=== PATIENT | male | born 1960 | race Caucasian/White ===

== ENCOUNTER 2019-03-07 17:02 | Emergency (ER) | payer SELFPAY ==
--- NOTE | 2019-03-07 18:06 | EDPHYS ---
Physician Documentation [facility] Name: Armani Cary Age: 58 yrs Sex: Male : 1960 Arrival Date: 03/07/2019 Time: 17:08 Bed 6 Private MD: ED Physician Melchor Mandujano HPI: 03/07 18:02 This 58 yrs old Male presents to ER via EMS with complaints of Fall Injury. ma2 18:02 Details of fall: The patient fell from a height. Associated injuries: The patient ma2 sustained injury to the head. Severity of symptoms: At their worst the symptoms were mild. The patient has not experienced similar symptoms in the past. Historical: - Allergies: 17:10 No Known Allergies; jl7 - Home Meds: 17:10 None [Active]; jl7 - PMHx: 17:10 None; jl7 - PSHx: 17:10 None; jl7 - Immunization history:: Adult Immunizations unknown. - Social history:: Smoking status: Patient uses tobacco products, smokes one pack cigarettes per day. Patient uses alcohol, on a daily basis. 12 pack/day. Patient/guardian denies using alcohol, street drugs, The patient lives with family. - Ebola Screening: : No symptoms or risks identified at this time. - Family history:: not pertinent. ROS: 18:02 Constitutional: Negative for fever, chills, and weight loss, Cardiovascular: Negative ma2 for chest pain, palpitations, and edema, Respiratory: Negative for shortness of breath, cough, wheezing, and pleuritic chest pain, Abdomen/GI: Negative for abdominal pain, nausea, diarrhea, and constipation. 18:02 All other systems are negative. Exam: 18:02 Constitutional: This is a well developed, well nourished patient who is awake, alert, ma2 and in no acute distress. Head/Face: Normocephalic, atraumatic. Eyes: Pupils equal round and reactive to light, extra-ocular motions intact. Lids and lashes normal. Conjunctiva and sclera are non-icteric and not injected. Cornea within normal limits. Periorbital areas with no swelling, redness, or edema. Neck: Trachea midline, no thyromegaly or masses palpated, and no cervical lymphadenopathy. Supple, full range of motion without nuchal rigidity, or vertebral point tenderness. No Meningismus. Chest/axilla: Normal chest wall appearance and motion. Nontender with no deformity. No lesions are appreciated. Cardiovascular: Regular rate and rhythm with a normal S1 and S2. No gallops, murmurs, or rubs. Normal PMI, no JVD. No pulse deficits. Respiratory: Lungs have equal breath sounds bilaterally, clear to auscultation and percussion. No rales, rhonchi or wheezes noted. No increased work of breathing, no retractions or nasal flaring. Vital Signs: 17:10 BP 174 / 115; Pulse 70; Resp 17 S; Temp 98.2(O); Pulse Ox 100% on R/A; Weight 65.77 kg jl7 (R); Pain 0/10; 18:08 BP 170 / 110; Pulse 71; Resp 15 S; Pulse Ox 100% on R/A; Pain 0/10; jl7 MDM: 17:08 Patient medically screened. ma2 18:02 Differential diagnosis: abrasion, closed head injury, contusion, fracture. Data ma2 reviewed: vital signs, nurses notes. Counseling: I had a detailed discussion with the patient and/or guardian regarding: the historical points, exam findings, and any diagnostic results supporting the discharge/admit diagnosis, the presence of at least one elevated blood pressure reading (>120/80) during this emergency department visit, the need for outpatient follow up. 03/07 17:09 Order name: CT Head C Spine ma2 Administered Medications: No medications were administered Disposition: 03/07/19 18:05 Discharged to Home. Impression: Acute post-traumatic headache. - Condition is Stable. - Medication Reconciliation Form, Thank You Letter, Antibiotic Education, Prescription Opioid Use form. - Follow up: Private Physician; When: Tomorrow; Reason: Continuance of care. Signatures: Dispatcher [employer] Catrachito Kate RN RN jl7 Melchor Mandujano MD MD ma2 Corrections: (The following items were deleted from the chart) 18:08 18:05 03/07/2019 18:05 Discharged to Home. Impression: Acute post-traumatic headache. jl7 Condition is Stable. Forms are Medication Reconciliation Form, Thank You Letter, Antibiotic Education, Prescription Opioid Use. Follow up: Private Physician; When: Tomorrow; Reason: Continuance of care. ma2
--- NOTE | 2019-03-07 18:06 | ER ---
Nurse's Notes [facility] Name: Armani Cary Age: 58 yrs Sex: Male : 1960 Arrival Date: 03/07/2019 Time: 17:08 Bed 6 Private MD: Diagnosis: Acute post-traumatic headache Presentation: 03/07 17:08 Presenting complaint: EMS states: Pt fell and bystanders reports he hit his head with jl7 positive LOC, pt denies LOC, pt has been drinking today. Pt also reports he's had a cough for a month and "It might need to be checked out.". Transition of care: patient was not received from another setting of care. Onset of symptoms was March 07, 2019. Risk Assessment: Do you want to hurt yourself or someone else? Patient reports no desire to harm self or others. Initial Sepsis Screen: Does the patient meet any 2 criteria? No. Patient's initial sepsis screen is negative. Does the patient have a suspected source of infection? No. Patient's initial sepsis screen is negative. Care prior to arrival: None. 17:08 Method Of Arrival: EMS: [facility] jl7 17:08 Acuity: RAHEEL 4 jl7 Triage Assessment: 17:10 General: Appears in no apparent distress. comfortable, Behavior is cooperative, Smells jl7 of alcohol. Pain: Denies pain. Neuro: Level of Consciousness is awake, alert, obeys commands, Oriented to person, place, time, situation, Pupils are PERRLA. Cardiovascular: Patient's skin is warm and dry. Respiratory: Reports cough that is productive, Airway is patent Respiratory effort is even, unlabored, Respiratory pattern is regular, symmetrical. Derm: Skin is pink, warm \\T\\ dry. Musculoskeletal: No deficits noted. Historical: - Allergies: 17:10 No Known Allergies; jl7 - Home Meds: 17:10 None [Active]; jl7 - PMHx: 17:10 None; jl7 - PSHx: 17:10 None; jl7 - Immunization history:: Adult Immunizations unknown. - Social history:: Smoking status: Patient uses tobacco products, smokes one pack cigarettes per day. Patient uses alcohol, on a daily basis. 12 pack/day. Patient/guardian denies using alcohol, street drugs, The patient lives with family. - Ebola Screening: : No symptoms or risks identified at this time. - Family history:: not pertinent. Screenin:10 Abuse screen: Denies threats or abuse. Denies injuries from another. Nutritional jl7 screening: No deficits noted. Tuberculosis screening: No symptoms or risk factors identified. Fall Risk None identified. Assessment: 17:10 General: See triage assessment. jl7 Vital Signs: 17:10 BP 174 / 115; Pulse 70; Resp 17 S; Temp 98.2(O); Pulse Ox 100% on R/A; Weight 65.77 kg jl7 (R); Pain 0/10; 18:08 BP 170 / 110; Pulse 71; Resp 15 S; Pulse Ox 100% on R/A; Pain 0/10; jl7 ED Course: 17:08 Patient arrived in ED. jl7 17:08 Melchor Mandujano MD is Attending Physician. sd2 17:10 Triage completed. jl7 17:10 Arm band placed on right wrist. jl7 17:10 Patient has correct armband on for positive identification. Bed in low position. Call [facility] light in reach. Side rails up X 1. Pulse ox on. NIBP on. 17:35 Catrachito Dewey, RN is Primary Nurse. jl7 18:01 CT Head C Spine In Process Unspecified. EDMS 18:08 No provider procedures requiring assistance completed. Patient did not have IV access [facility] during this emergency room visit. Administered Medications: No medications were administered Outcome: 18:05 Discharge ordered by . ma2 18:08 Discharged to home ambulatory. jl7 18:08 Condition: stable 18:08 Discharge instructions given to patient, Instructed on discharge instructions, follow up and referral plans. Demonstrated understanding of instructions, follow-up care. 18:08 Patient left the ED. 7 Signatures: Dispatcher [employer] Catrachito Kate RN RN jl7 Alzahri, Mohammad, MD MD health system
--- NOTE | 2019-03-07 18:20 | RAD REPORT ---
EXAM DESCRIPTION: CT - Head C Spine Mpr Wo Con - 03/07/2019 6:00 pm CLINICAL HISTORY: Head and neck injury status post fall. Head and neck pain COMPARISON: None. TECHNIQUE: Computed axial tomography of the head and cervical spine was obtained. Sagittal and coronal reconstruction was performed. All CT scans are performed using dose optimization technique as appropriate and may include automated exposure control or mA/KV adjustment according to patient size. FINDINGS: An intracranial bleed is not seen. The ventricles are normal in caliber. An extra-axial fl uid collection is not noted.Fluid within the visualized sinuses and mastoids is not seen A cervical fracture is not visualized. No dislocation is noted. Spondylosis involves the cervical spi ne resulting in central and foraminal stenosis. C5-6 there is marked right foraminal stenosis and mod erate to marked central spinal stenosis and compression of the spinal cord IMPRESSION: No acute intracranial abnormality is seen. A cervical fracture is not visualized.
[2019-03-07 20:03] VITALS: TEMP 98.2; O2SAT 100
[2019-03-07 20:05] VITALS: BP 170/110
== END 2019-03-07 18:08 | disposition home or self-care (01) ==
LOC: ER 17:02
DX: G44.319 Acute post-traumatic headache, not intractable (principal); F17.210 Nicotine dependence, cigarettes, uncomplicated; W18.30XA Fall on same level, unspecified, initial encounter; Y93.9 Activity, unspecified; Y92.9 Unspecified place or not applicable
CPT/HCPCS: 70450; 72125; 99283

== ENCOUNTER 2019-11-28 09:40 | Emergency (ER) | payer SELFPAY ==
[2019-11-28] MEDS ORDERED: HYDROCODONE/APAP 5/325 MG TAB ONE (10:16)
[2019-11-28] MEDS ORDERED: TETANUS & DIPHTHERIA TOX,ADULT 0.5 ML VIAL ONE (10:16)
[2019-11-28] MEDS ORDERED: LIDOCAINE 1% MPF 5 ML VIAL ONE (10:23)
--- NOTE | 2019-11-28 10:59 | ER ---
Nurse's Notes [facility] Name: Armani Casiano Age: 59 yrs Sex: Male : 1960 Arrival Date: 11/28/2019 Time: 09:42 Bed 13 Private MD: Diagnosis: Cutaneous abscess of right upper limb Presentation: 11/27 10:02 Chief complaint: Patient states: Abscess to R FA for 3-4 days. Started draining ll1 yesterday. No fever. Coronavirus screen: Client denies travel out of the [place] in the last 14 days. At this time, the client does not indicate any symptoms associated with coronavirus-19. Ebola Screen: Patient denies travel to an Ebola-affected area in the 21 days before illness onset. Initial Sepsis Screen: Does the patient meet any 2 criteria? No. Patient's initial sepsis screen is negative. Risk Assessment: Do you want to hurt yourself or someone else? Patient reports no desire to harm self or others. Onset of symptoms was November 26, 2019. 10:02 Method Of Arrival: Ambulatory ll1 10:02 Acuity: RAHEEL 3 ll1 10:15 Initial Sepsis Screen: Does the patient have a suspected source of infection? Yes: Skin ll1 breakdown/wound. Historical: - Allergies: 10:04 No Known Allergies; ll1 - PSHx: 10:04 None; ll1 - Immunization history:: Flu vaccine is up to date. - Social history:: Smoking status: Patient reports the use of cigarette tobacco products, smokes one pack cigarettes per day. Patient uses alcohol, only on a social basis. Patient/guardian denies using street drugs. Screenin:15 Abuse screen: Denies threats or abuse. Nutritional screening: No deficits noted. ll1 Tuberculosis screening: No symptoms or risk factors identified. Fall Risk None identified. Total Cyr Fall Scale indicates No Risk (0-24 pts). Assessment: 10:14 General: Appears uncomfortable, Behavior is calm, cooperative. Pain: Complains of pain ll1 in R FA Pain currently is 3 out of 10 on a pain scale. Quality of pain is described as aching, Pain began 2-3 days ago. Neuro: No deficits noted. Cardiovascular: No deficits noted. Respiratory: No deficits noted. Derm: Reports abscess with drainage to R FA with surrounding cellulitis. No fever. Vital Signs: 10:02 BP 174 / 91; Pulse 88; Resp 17; Temp 97.8; Pulse Ox 100% ; Pain 3/10; ll1 ED Course: 09:42 Patient arrived in ED. mr 09:48 Yulianagilson Bong, COLLECTION CLERK is PHCP. pm1 09:48 Mane Sarkar MD is Attending Physician. pm1 10:02 Richard Callahan, FLY is Primary Nurse. ll1 10:04 Triage completed. ll1 10:05 Arm band placed on Patient placed in an exam room, on a stretcher. ll1 10:22 Forearm Right XRAY In Process Unspecified. EDMS 11:04 No provider procedures requiring assistance completed. Patient did not have IV access hb during this emergency room visit. Administered Medications: 10:06 Drug: Tetanus-Diphtheria Toxoid Adult 0.5 ml {Director Of Transportation: [employer]. Exp: hb 05/07/2022. Lot #: [id number]. } Route: IM; Site: left deltoid; 11:04 Follow up: Response: No adverse reaction; RASS: Alert and Calm (0) ll1 10:06 Drug: [place] 5 mg-325 mg 1 tabs Route: PO; hb 11:04 Follow up: Response: No adverse reaction; Pain is decreased; RASS: Alert and Calm (0) ll1 11:04 Drug: Bactrim (160 mg-800 mg (DS) 1 tablet Route: PO; ll1 11:05 Follow up: Response: No adverse reaction; RASS: Alert and Calm (0) ll1 Outcome: 10:58 Discharge ordered by MD. pm1 11:04 Discharged to home ambulatory. hb 11:04 Condition: stable 11:04 Discharge instructions given to patient, Instructed on discharge instructions, follow up and referral plans. medication usage, wound care, Demonstrated understanding of instructions, follow-up care, medications, wound care, Prescriptions given X 2. 11:05 Patient left the ED. hb Addendum: 12/01/2019 08:33 Addendum: Culture Results: Positive wound culture. Bacteria is resistant to, has s s intermediate sensitivity, or is not tested against prescribed antibiotics. Report given to MONO for further evaluation and then to bullet swaging machine adjuster for follow up with patient. Phone call Attempt #1 Family member answered and stated that patient was at work, but would tell him to call back. 17:11 Addendum: Culture Results: Prescription called-in to pharmacy of choice. Spoke to s s patient who verbalizes understanding importance of changing antibiotics. Doxycycline 100 mg BID x 10 days #20 called in to pharmacy of choice, [facility]. Signatures: Dispatcher [employer] JIMMIEAlehsa ArandaEster, RN RN ss Bong Meier, COLLECTION CLERK COLLECTION CLERK pm1 Radha Britton RN RN hb Lewis, Lynsay, RN RN ll1 Corrections: (The following items were deleted from the chart) 11/27 10:15 10:02 Initial Sepsis Screen: Does the patient meet any 2 criteria? HR > 90 bpm. ll1 ll1
--- NOTE | 2019-11-28 10:59 | EDPHYS ---
Physician Documentation [facility] Name: Armani Casiano Age: 59 yrs Sex: Male : 1960 Arrival Date: 11/28/2019 Time: 09:42 Bed 13 Private MD: ED Physician Mane Sarkar HPI: 11/27 10:56 This 59 yrs old Male presents to ER via Ambulatory with complaints of Abscess.pm1 10:56 The patient presents with an abscess of the palmar aspect of right forearm. pm1 Description: draining, raised. Onset: The symptoms/episode began/occurred 2 day(s) ago. Possible cause(s): unknown. Associated signs and symptoms: Pertinent positives: drainage, swelling, Pertinent negatives: fever. Modifying factors: the symptoms are alleviated by nothing, the symptoms are aggravated by touching. Severity of symptoms: in the emergency department the symptoms are actually worse. The patient has not experienced similar symptoms in the past. The patient has not recently seen a physician, and does not have an established primary care provider. Historical: - Allergies: 10:04 No Known Allergies; ll1 - PSHx: 10:04 None; ll1 - Immunization history:: Flu vaccine is up to date. - Social history:: Smoking status: Patient reports the use of cigarette tobacco products, smokes one pack cigarettes per day. Patient uses alcohol, only on a social basis. Patient/guardian denies using street drugs. ROS: 10:56 Constitutional: Negative for fever, chills, and weight loss, Cardiovascular: Negative pm1 for chest pain, palpitations, and edema, Respiratory: Negative for shortness of breath, cough, wheezing, and pleuritic chest pain. 10:56 MS/Extremity: Negative for injury and deformity. 10:56 Neuro: Negative for headache, weakness, numbness, tingling, and seizure. 10:56 Skin: Positive for abscess, of the palmar aspect of right forearm. Exam: 10:56 Constitutional: This is a well developed, well nourished patient who is awake, alert, pm1 and in no acute distress. Head/Face: Normocephalic, atraumatic. 10:56 MS/ Extremity: Pulses equal, no cyanosis. Neurovascular intact. Full, normal range of motion. 10:56 Cardiovascular: Exam negative for acute changes, Rate: normal, Rhythm: regular, Pulses: no pulse deficits are appreciated. 10:56 Respiratory: Exam negative for acute changes, respiratory distress, shortness of breath. 10:56 Skin: Appearance: normal except for affected area, abscess, that is moderate sized, approximately 2 cm(s), of the palmar aspect of right forearm, with drainage, that is serosanguinous, with fluctuance, cellulitis, is not appreciated. 10:56 Neuro: Exam negative for acute changes, Orientation: is normal, Mentation: is normal, Motor: is normal, Sensation: is normal, no obvious gross deficits. Vital Signs: 10:02 BP 174 / 91; Pulse 88; Resp 17; Temp 97.8; Pulse Ox 100% ; Pain 3/10; ll1 Procedures: 10:56 I \T\ D: Incision and drainage was performed for an abscess of the right palmar aspect of pm1 right forearm Prepped with Betadine, Anesthetized with 10 ml's 1% Lidocaine. Incised with #11 blade. Drained small amount serosanguinous fluid. Loculations removed. Cultures obtained. Abscess cavity explored. Packed with iodoform gauze, Dressing: sterile 4x4 gauze, the patient tolerated the procedure well. MDM: 09:48 Patient medically screened. pm1 10:27 Data reviewed: vital signs. Data interpreted: Pulse oximetry: on room air is 100 %. pm1 Interpretation: normal. 10:56 Counseling: I had a detailed discussion with the patient and/or guardian regarding: the pm1 historical points, exam findings, and any diagnostic results supporting the discharge/admit diagnosis, radiology results, the need for outpatient follow up, a family practitioner, a general surgeon, to return to the emergency department if symptoms worsen or persist or if there are any questions or concerns that arise at home, Patient does not have a doctor. Instructed patient he can follow up on Saturday here in the ER for wound assessment and repacking if required. 11/27 09:52 Order name: Wound Culture pm1 11/27 09:52 Order name: Forearm Right XRAY pm1 11/27 09:52 Order name: Incision \T\ Drainage Setup; Complete Time: 11:04 pm1 Administered Medications: 10:06 Drug: Tetanus-Diphtheria Toxoid Adult 0.5 ml {Feed Grinder: [employer]. Exp: hb 05/07/2022. Lot #: [id number]. } Route: IM; Site: left deltoid; 11:04 Follow up: Response: No adverse reaction; RASS: Alert and Calm (0) ll1 10:06 Drug: [place] 5 mg-325 mg 1 tabs Route: PO; hb 11:04 Follow up: Response: No adverse reaction; Pain is decreased; RASS: Alert and Calm (0) ll1 11:04 Drug: Bactrim (160 mg-800 mg (DS) 1 tablet Route: PO; ll1 11:05 Follow up: Response: No adverse reaction; RASS: Alert and Calm (0) ll1 Disposition: 11/28/19 10:58 Discharged to Home. Impression: Cutaneous abscess of right upper limb. - Condition is Stable. - Discharge Instructions: Skin Abscess, Incision and Drainage. - Prescriptions for Tylenol- Codeine #3 300-30 mg Oral Tablet - take 2 tablets by ORAL route every 6 hours As needed; 20 tablet. Bactrim DS 800- 160 mg Oral Tablet - take 1 tablet by ORAL route every 12 hours for 10 days; 20 tablet. - Medication Reconciliation Form, Thank You Letter, Antibiotic Education, Prescription Opioid Use form. - Follow up: Emergency Department; When: As needed; Reason: Worsening of condition. Follow up: Private Physician; When: 2 - 3 days; Reason: Recheck today's complaints, Continuance of care, Re-evaluation by your physician. - Problem is new. - Symptoms have improved. Addendum: 11/30/2019 10:48 Co-signature as Attending Physician, Mane Sarkar MD I agree with the assessment and c albright plan of care. Signatures: Dispatcher [employer] [facility] Mane Sarkar MD MD cha Marinas, Patrick, CRAFT WORKER CRAFT WORKER pm1 Radha Britton, FLY RN Richard Dupree RN RN ll1 Corrections: (The following items were deleted from the chart) 11/27 11:05 10:58 11/28/2019 10:58 Discharged to Home. Impression: Cutaneous abscess of right upper hb limb. Condition is Stable. Forms are Medication Reconciliation Form, Thank You Letter, Antibiotic Education, Prescription Opioid Use. Follow up: Emergency Department; When: As needed; Reason: Worsening of condition. Follow up: Private Physician; When: 2 - 3 days; Reason: Recheck today's complaints, Continuance of care, Re-evaluation by your physician. Problem is new. Symptoms have improved. pm1
[2019-11-28] MEDS ORDERED: SMZ./TMP. 800/160 MG TABLET ONE (11:09)
[2019-11-28 11:16] VITALS: BP 174/91; TEMP 97.8; O2SAT 100
--- NOTE | 2019-11-28 11:41 | RAD REPORT ---
EXAM DESCRIPTION: RAD - Forearm Right - 11/28/2019 10:22 am CLINICAL HISTORY: SWELLING, soft tissue mass, right arm pain COMPARISON: No comparisons FINDINGS: No fracture is identified. There is no dislocation or periosteal reaction noted. No air or foreign body in the soft tissues. Soft tissue edema or swelling is present along the memorandum statement clerk omedial side of the proximal forearm IMPRESSION: Proximal right arm swelling as detailed. No air or foreign body seen. No bone or joint abnormality seen.
== END 2019-11-28 11:05 | disposition home or self-care (01) ==
LOC: ER 09:40
PROC: 0J9G0ZZ Drainage of Right Lower Arm Subcutaneous Tissue and Fascia, Open Approach (ICD-10-PCS; principal; 2019-11-28)
DX: L02.413 Cutaneous abscess of right upper limb (principal); Z23 Encounter for immunization; F17.210 Nicotine dependence, cigarettes, uncomplicated
CPT/HCPCS: 87070; 87077; 87186; 87205; 90471; 90714; 99283

== ENCOUNTER 2019-11-30 09:53 | Emergency (ER) | payer SELFPAY ==
--- NOTE | 2019-11-30 10:35 | EDPHYS ---
Physician Documentation [facility] Name: Armani Casiano Age: 59 yrs Sex: Male : 1960 Arrival Date: 11/30/2019 Time: 09:55 Bed 14 Private MD: ED Physician Mane Sarkar HPI: 11/29 10:32 This 59 yrs old Male presents to ER via Ambulatory with complaints of Wound pm1 Check. 10:32 Patient presents to ED for recheck of: abscess. pm1 10:32 The affected area is on the palmar aspect of left forearm. Previous treatment: The pm1 patient was initially treated 2 day(s) ago, Treatment type: The patient's original treatment included an I\T\D, Outpatient prescription(s): The patient was given prescription(s) for Bactrim. Progress: The patient reports excellent improvement in the affected area. There has been resolution, improvement, or non-development of any drainage, fever, pain, redness or swelling. The patient has not experienced similar symptoms in the past. Historical: - Allergies: 10:13 No Known Allergies; ca1 - Home Meds: 10:13 Tylenol #3 Oral [Active]; Bactrim DS Oral [Active]; ca1 - PMHx: 10:13 None; ca1 - PSHx: 10:13 None; ca1 - Immunization history:: Adult Immunizations up to date. - Social history:: Smoking status: Patient reports the use of cigarette tobacco products, smokes one-half pack cigarettes per day. ROS: 10:32 Constitutional: Negative for fever, chills, and weight loss, Cardiovascular: Negative pm1 for chest pain, palpitations, and edema, Respiratory: Negative for shortness of breath, cough, wheezing, and pleuritic chest pain, Abdomen/GI: Negative for abdominal pain, nausea, vomiting, diarrhea, and constipation, MS/Extremity: Negative for injury and deformity, Skin: Negative for injury, rash, and discoloration, Neuro: Negative for headache, weakness, numbness, tingling, and seizure. Exam: 10:32 Constitutional: This is a well developed, well nourished patient who is awake, alert, pm1 and in no acute distress. Head/Face: Normocephalic, atraumatic. 10:32 Cardiovascular: Exam negative for acute changes, Rate: normal, Rhythm: regular, Pulses: no pulse deficits are appreciated. 10:32 Respiratory: Exam negative for acute changes, respiratory distress, shortness of breath. 10:32 Skin: Wound recheck: Abscess: the wound has improved, decreased discharge, the packing is in place. Vital Signs: 10:10 BP 166 / 100; Pulse 66; Resp 16 S; Temp 97.6(TE); Pulse Ox 99% on R/A; Weight 68.04 kg ca1 (R); Height 6 ft. (182.88 cm) (R); 10:42 BP 131 / 92; Pulse 62; Resp 17; Pulse Ox 97% on R/A; tw2 10:10 Body Mass Index 20.34 (68.04 kg, 182.88 cm) ca1 MDM: 10:15 Patient medically screened. pm1 10:32 Data reviewed: vital signs. Data interpreted: Pulse oximetry: on room air is 99 %. pm1 Interpretation: normal. Counseling: I had a detailed discussion with the patient and/or guardian regarding: the historical points, exam findings, and any diagnostic results supporting the discharge/admit diagnosis, the need for outpatient follow up, To establish care with a PCP. If unable may return to the ER for evaluation of wound in 2 days. Patient does not want to change the dressing or packing himself, to return to the emergency department if symptoms worsen or persist or if there are any questions or concerns that arise at home. 11/29 10:36 Order name: Wound dressing; Complete Time: 10:42 tw2 Administered Medications: No medications were administered Disposition: 11/30 08:16 Co-signature as Attending Physician, Mane Sarkar MD I agree with the assessment and michael plan of care. Disposition: 11/30/19 10:35 Discharged to Home. Impression: Encounter for change or removal of surgical wound dressing, Cutaneous abscess of left upper limb. - Condition is Stable. - Discharge Instructions: Skin Abscess, How to Change Your Dressing, Incision and Drainage. - Medication Reconciliation Form, Thank You Letter, Antibiotic Education, Prescription Opioid Use form. - Follow up: Emergency Department; When: As needed; Reason: Worsening of condition. Follow up: Private Physician; When: 2 days; Reason: Wound Recheck, Recheck today's complaints, Continuance of care, Re-evaluation by your physician. - Problem is new. - Symptoms have improved. - Notes: Continue taking your antibiotics Signatures: Mane Sarkar MD MD cha Marinas, Patrick, MARIA ISABEL EKG MONITOR TECH pm1 Ny Escobar RN RN tw2 Natasha Samaniego RN RN ca1 Corrections: (The following items were deleted from the chart) 11/29 10:43 10:35 11/30/2019 10:35 Discharged to Home. Impression: Encounter for change or removal tw2 of surgical wound dressing; Cutaneous abscess of left upper limb. Condition is Stable. Forms are Medication Reconciliation Form, Thank You Letter, Antibiotic Education, Prescription Opioid Use. Follow up: Emergency Department; When: As needed; Reason: Worsening of condition. Follow up: Private Physician; When: 2 days; Reason: Wound Recheck, Recheck today's complaints, Continuance of care, Re-evaluation by your physician. Problem is new. Symptoms have improved. pm1
--- NOTE | 2019-11-30 10:35 | ER ---
Nurse's Notes [facility] Name: Armani Casiano Age: 59 yrs Sex: Male : 1960 Arrival Date: 11/30/2019 Time: 09:55 Bed 14 Private MD: Diagnosis: Encounter for change or removal of surgical wound dressing;Cutaneous abscess of left upper limb Presentation: 11/29 10:10 Chief complaint: Patient states: Abscess on the R forearm, I\T\D done on Saturdat by ca1 Bong Meier NP. Was instructed to come back today to check on wound. Denies fever. Coronavirus screen: Client denies travel out of the [place] in the last 14 days. At this time, the client does not indicate any symptoms associated with coronavirus-19. Ebola Screen: Patient negative for fever greater than or equal to 101.5 degrees Fahrenheit, and additional compatible Ebola Virus Disease symptoms Patient denies exposure to infectious person. Patient denies travel to an Ebola-affected area in the 21 days before illness onset. No symptoms or risks identified at this time. Initial Sepsis Screen: Does the patient meet any 2 criteria? No. Patient's initial sepsis screen is negative. Does the patient have a suspected source of infection? No. Patient's initial sepsis screen is negative. Risk Assessment: Do you want to hurt yourself or someone else? Patient reports no desire to harm self or others. 10:10 Method Of Arrival: Ambulatory ca1 10:10 Acuity: RAHEEL 5 ca1 10:10 Onset of symptoms was November 30, 2019. ca1 Historical: - Allergies: 10:13 No Known Allergies; ca1 - Home Meds: 10:13 Tylenol #3 Oral [Active]; Bactrim DS Oral [Active]; ca1 - PMHx: 10:13 None; ca1 - PSHx: 10:13 None; ca1 - Immunization history:: Adult Immunizations up to date. - Social history:: Smoking status: Patient reports the use of cigarette tobacco products, smokes one-half pack cigarettes per day. Screenin: Abuse screen: Denies threats or abuse. Nutritional screening: No deficits noted. tw2 Tuberculosis screening: No symptoms or risk factors identified. Fall Risk None identified. Assessment: : Reassessment: provider at bedside packing wound with iodoform at this time. tw2 10:30 General: Appears in no apparent distress. slender, Behavior is cooperative, appropriate tw2 for age. Pain: Denies pain. Neuro: Level of Consciousness is awake, alert, obeys commands, Oriented to person, place, time, situation. Cardiovascular: Patient's skin is warm and dry. Respiratory: Airway is patent Respiratory effort is even, unlabored, Respiratory pattern is regular, symmetrical. GI: No signs and/or symptoms were reported involving the gastrointestinal system. : No signs and/or symptoms were reported regarding the genitourinary system. EENT: No signs and/or symptoms were reported regarding the EENT system. Derm: Wound noted left arm and palmar aspect of left forearm Wound is redness and purulent drainage noted. Musculoskeletal: Circulation, motion, and sensation intact. Range of motion: intact in all extremities. 10:43 Reassessment: Patient appears in no apparent distress at this time. No changes from tw2 previously documented assessment. Patient and/or family updated on plan of care and expected duration. Pain level reassessed. Patient is alert, oriented x 3, equal unlabored respirations, skin warm/dry/pink. Vital Signs: 10:10 BP 166 / 100; Pulse 66; Resp 16 S; Temp 97.6(TE); Pulse Ox 99% on R/A; Weight 68.04 kg ca1 (R); Height 6 ft. (182.88 cm) (R); 10:42 BP 131 / 92; Pulse 62; Resp 17; Pulse Ox 97% on R/A; tw2 10:10 Body Mass Index 20.34 (68.04 kg, 182.88 cm) ca1 ED Course: 09:55 Patient arrived in ED. as 10:12 Triage completed. ca1 10:13 Arm band placed on right wrist. ca1 10:13 Bed in low position. Call light in reach. Pulse ox on. NIBP on. tw2 10:15 Bong Meier NP is PHCP. pm1 10:15 Mane Sarkar MD is Attending Physician. pm1 10:28 Ny Escobar, FLY is Primary Nurse. tw2 10:43 No provider procedures requiring assistance completed. Patient did not have IV access tw2 during this emergency room visit. Administered Medications: No medications were administered Outcome: 10:35 Discharge ordered by . pm1 10:43 Discharged to home ambulatory. tw2 10:43 Condition: stable 10:43 Discharge instructions given to patient, Instructed on discharge instructions, follow up and referral plans. wound care, Demonstrated understanding of instructions, follow-up care, wound care. 10:43 Patient left the ED. tw2 Signatures: Iliana Saeed Patrick, MARIA ISABEL DIRECTOR OF LABOR AND DELIVERY pm1 Ny Escobar RN RN tw2 Natasha Samaniego RN RN ca1
[2019-11-30 10:55] VITALS: TEMP 97.6
[2019-11-30 10:56] VITALS: BP 131/92; O2SAT 97
== END 2019-11-30 10:43 | disposition home or self-care (01) ==
LOC: ER 09:53
DX: L02.414 Cutaneous abscess of left upper limb (principal); F17.210 Nicotine dependence, cigarettes, uncomplicated
CPT/HCPCS: 99283